=== PATIENT | male | born 1930 | race Asian ===

== ENCOUNTER 2017-04-05 06:57 | Outpatient (CLI) | payer OTHER ==
[~2017-04-05 06:57] MED LIST: ASA LOW DOSE81 MG PO; CARDURA4 MG PO; GLYB5TAB65 PO; LISITAB PO; MECL25TA84 PO; OXYC5TAB53 PO; PEPCID20 MG PO
[2017-04-05 07:48] LABS: PLATELET COUNT 174 K/uL (142-355)
== END 2017-04-05 19:03 | disposition home or self-care (01) ==
LOC: LABW 06:57
PROVIDERS: Surgery
DX: Z01.812 Encounter for preprocedural laboratory examination (principal); I70.235 Atherosclerosis of native arteries of right leg with ulceration of other part of foot
CPT/HCPCS: 36415; 80048; 85027

== ENCOUNTER 2017-04-30 06:56 | Outpatient (CLI) | payer OTHER ==
[2017-04-30 07:57] LABS: PLATELET COUNT 202 K/uL (142-355)
[2017-04-30 08:52] LABS: POTASSIUM 4.3 mmol/L (3.6-5.2)
== END 2017-04-30 08:00 | disposition home or self-care (01) ==
LOC: LABW 06:56
PROVIDERS: Internal Medicine
DX: H61.23 Impacted cerumen, bilateral (principal); I10 Essential (primary) hypertension; Z79.899 Other long term (current) drug therapy; E11.9 Type 2 diabetes mellitus without complications; Z51.81 Encounter for therapeutic drug level monitoring
CPT/HCPCS: 36415; 80053; 80061; 81000; 82043; 82570; 83036; 84443; 85027

== ENCOUNTER 2017-06-25 16:34 | Emergency (ER) | payer OTHER ==
[~2017-06-25] VITALS: Ht 172.7 cm; Wt 85.7 kg
[2017-06-25 18:15] LABS: PLATELET COUNT 200 K/uL (142-355)
[2017-06-25 18:19] LABS: POTASSIUM 3.2 mmol/L (3.6-5.2)
[2017-06-25 21:04] VITALS: BP 146/68; TEMP 98
== END 2017-06-25 20:50 | disposition home or self-care (01) ==
LOC: ED 16:34
PROVIDERS: Emergency Medicine
DX: R55 Syncope and collapse (principal); M79.675 Pain in left toe(s); L08.89 Other specified local infections of the skin and subcutaneous tissue
CPT/HCPCS: 36415; 80053; 81000; 82550; 84484; 85027; 93005; 96361; 96374; 99284; J2270

== ENCOUNTER 2017-07-01 08:48 | Outpatient (CLI) | payer OTHER ==
[2017-07-01 10:03] LABS: PLATELET COUNT 195 K/uL (142-355)
[2017-07-01 10:20] LABS: POTASSIUM 4.8 mmol/L (3.6-5.2)
== END 2017-07-01 19:55 | disposition home or self-care (01) ==
LOC: LABW 08:48
PROVIDERS: Podiatrist
DX: Z01.810 Encounter for preprocedural cardiovascular examination (principal); Z01.811 Encounter for preprocedural respiratory examination; Z01.812 Encounter for preprocedural laboratory examination; R73.09 Other abnormal glucose
CPT/HCPCS: 36415; 80053; 83036; 85027

== ENCOUNTER 2017-10-28 09:42 | Outpatient (CLI) | payer OTHER ==
[2017-10-28 10:06] LABS: PLATELET COUNT 200 K/uL (142-355)
[2017-10-28 10:16] LABS: POTASSIUM 4.2 mmol/L (3.6-5.2); SODIUM 139 mmol/L (136-145)
== END 2017-10-28 11:00 | disposition home or self-care (01) ==
LOC: LABW 09:42
PROVIDERS: Podiatrist
DX: E11.52 Type 2 diabetes mellitus with diabetic peripheral angiopathy with gangrene (principal); Z01.810 Encounter for preprocedural cardiovascular examination; Z01.811 Encounter for preprocedural respiratory examination; Z01.812 Encounter for preprocedural laboratory examination; Z51.81 Encounter for therapeutic drug level monitoring
CPT/HCPCS: 36415; 80053; 83036; 85002; 85027; 93005

== ENCOUNTER 2017-12-31 09:23 | Outpatient (CLI) | payer OTHER | END 2017-12-31 19:23 | disposition home or self-care (01) | LOC: LABW 09:23 | DX: M10.071 Idiopathic gout, right ankle and foot (principal) | CPT/HCPCS: 36415; 84550 ==

== ENCOUNTER 2018-08-15 09:09 | Outpatient (CLI) | payer OTHER ==
[2018-08-15 09:34] LABS: PLATELET COUNT 170 K/uL (142-355)
== END 2018-08-15 19:43 | disposition home or self-care (01) ==
LOC: LABW 09:09
PROVIDERS: Internal Medicine
DX: E11.9 Type 2 diabetes mellitus without complications (principal)
CPT/HCPCS: 36415; 80053; 80061; 81000; 82043; 82570; 83036; 84443; 85027

== ENCOUNTER 2018-11-01 09:57 | Outpatient (CLI) | payer OTHER ==
[2018-11-01 10:15] LABS: PLATELET COUNT 166 K/uL (142-355)
[2018-11-01 10:56] LABS: POTASSIUM 3.9 mmol/L (3.6-5.2)
== END 2018-11-01 21:24 | disposition home or self-care (01) ==
LOC: LABW 09:57
PROVIDERS: Physician Assistant
DX: Z00.00 Encounter for general adult medical examination without abnormal findings (principal); E11.9 Type 2 diabetes mellitus without complications; N40.0 Benign prostatic hyperplasia without lower urinary tract symptoms
CPT/HCPCS: 36415; 80053; 80061; 83036; 84153; 84439; 84443; 85027

== ENCOUNTER 2019-11-03 17:31 | Outpatient (CLI) | payer OTHER ==
[2019-11-03 18:10] LABS: PLATELET COUNT 144 K/uL (142-355)
[2019-11-03 18:33] LABS: POTASSIUM 4.5 mmol/L (3.6-5.2)
== END 2019-11-03 19:55 | disposition home or self-care (01) ==
LOC: LAB 17:31
PROVIDERS: Internal Medicine
DX: E11.9 Type 2 diabetes mellitus without complications (principal); I10 Essential (primary) hypertension; I25.10 Atherosclerotic heart disease of native coronary artery without angina pectoris; Z09 Encounter for follow-up examination after completed treatment for conditions other than malignant neoplasm; R97.20 Elevated prostate specific antigen [PSA]; Z85.46 Personal history of malignant neoplasm of prostate
CPT/HCPCS: 80053; 82306; 84153; 84443; 85027

== ENCOUNTER 2020-01-15 14:31 | Outpatient (CLI) | payer OTHER ==
[2020-01-15] MEDS ORDERED: GLIP10TA55 PO (14:42)
[2020-01-15] MEDS ORDERED: SIMV20TA2 PO (14:42)
== END 2020-01-15 14:33 | disposition short-term general hospital (02) ==
LOC: AMB 14:31
DX: I63.9 Cerebral infarction, unspecified (principal); R94.31 Abnormal electrocardiogram [ECG] [EKG]; R73.9 Hyperglycemia, unspecified; I48.91 Unspecified atrial fibrillation
CPT/HCPCS: A0425; A0427

== ENCOUNTER 2020-01-15 14:35 | Emergency (ER) | payer OTHER ==
[~2020-01-15] VITALS: Ht 172.7 cm; Wt 70.3 kg
[2020-01-15] VITALS (8 sets, daily range): BP systolic 139–187; BP diastolic 70–95; TEMP 98.1
[2020-01-15] MEDS ORDERED: GLIP10TA55 PO (14:42)
[2020-01-15] MEDS ORDERED: SIMV20TA2 PO (14:42)
[2020-01-15 14:56] LABS: PLATELET COUNT 150 K/uL (142-355)
[2020-01-15 15:04] LABS: POTASSIUM 3.9 mmol/L (3.6-5.2); SODIUM 135 mmol/L (136-145)
[2020-01-15 15:17] LABS: PARTIAL THROMBOPLASTIN TIME 24.2 SECONDS (24.5-33.6)
== END 2020-01-15 18:10 | disposition still patient (30) ==
LOC: ED 14:39 → MED/SURG 16:26 → ED 16:26 → MED/SURG 20:45
PROVIDERS: Student in an Organized Health Care Education/Training Program
DX: I63.9 Cerebral infarction, unspecified (principal); G83.24 Monoplegia of upper limb affecting left nondominant side; R29.810 Facial weakness; I44.2 Atrioventricular block, complete; R20.0 Anesthesia of skin
CPT/HCPCS: 80053; 81000; 82962; 83735; 84443; 84484; 85027; 85610; 85730; 93005; 96365; 99284; J3475

== ENCOUNTER 2020-01-15 18:17 | Outpatient (CLI) | payer OTHER ==
[~2020-01-15 18:17] MED LIST changes: +GLIP10TA55 PO; +SIMV20TA2 PO
== END 2020-01-15 19:32 | disposition short-term general hospital (02) ==
LOC: AMB 18:17
DX: I63.9 Cerebral infarction, unspecified (principal); I44.2 Atrioventricular block, complete; I69.954 Hemiplegia and hemiparesis following unspecified cerebrovascular disease affecting left non-dominant side
CPT/HCPCS: A0425; A0427